=== PATIENT | female | born 1950 | race Caucasian/White ===

== ENCOUNTER 2024-03-28 11:22 | Emergency (ER) | payer OTHER, MEDICAID ==
[~2024-03-28] VITALS: Ht 152.4 cm; Wt 68.1 kg
[2024-03-28 12:40] VITALS: BP 152/78; PULSE 76; RESP 18; TEMP 97.5; O2SAT 100
[2024-03-28] MEDS ORDERED: METH-1182 PO (13:35)
[2024-03-28] MEDS ORDERED: ACET-1080 PO (13:35)
== END 2024-03-28 13:39 | disposition home or self-care (01) ==
LOC: ER 11:22
DX: S29.011A Strain of muscle and tendon of front wall of thorax, initial encounter (principal); E11.9 Type 2 diabetes mellitus without complications; I10 Essential (primary) hypertension; W18.09XA Striking against other object with subsequent fall, initial encounter; Y93.02 Activity, running; Y92.89 Other specified places as the place of occurrence of the external cause; Y99.8 Other external cause status
CPT/HCPCS: 71101

== ENCOUNTER 2024-06-08 14:41 | Emergency (ER) | payer OTHER, MEDICAID ==
[~2024-06-08] VITALS: Ht 160 cm; Wt 65.0 kg
[~2024-06-08 14:41] MED LIST: ACET-1080 PO; METH-1182 PO
[2024-06-08 15:42] LABS: Urine Bacteria FEW /hpf (None Seen); Urine Blood 1+ /uL (Negative); Urine Budding Yeast FEW /hpf (None Seen); Urine Clarity Ex.Turbid (Clear); Urine Color Colorless (Yellow); Urine Protein, UAD TRACE (Negative); Urine Urobilinogen Normal (Negative); Urine WBC 198 /hpf (0 - 5)
[2024-06-08 15:43] VITALS: BP 129/72; PULSE 81; RESP 20; TEMP 98.4; O2SAT 97
[2024-06-08] MEDS: HYDROcodone-ACET 5/325MG TAB PO ONE (16:00)
[2024-06-08] MEDS ORDERED: BACDST PO (16:22)
[2024-06-08] MEDS ORDERED: [UNRECOGNIZED DRUG - CODE] VA (16:22)
[2024-06-08] MEDS ORDERED: ACET500T58 PO (16:22)
[2024-06-08] MEDS ORDERED: IBUP-1454 PO (16:22)
[2024-06-08] MEDS: SULFAMETHOX W/TRIMETH(800/160MG) DS TAB PO ONE (16:51)
== END 2024-06-08 17:00 | disposition home or self-care (01) ==
LOC: ER 14:41
DX: N39.0 Urinary tract infection, site not specified (principal); B37.31 Acute candidiasis of vulva and vagina; I10 Essential (primary) hypertension; E11.9 Type 2 diabetes mellitus without complications; Z79.899 Other long term (current) drug therapy
CPT/HCPCS: 81001

== ENCOUNTER 2024-12-21 08:23 | Emergency (ER) | payer OTHER, MEDICAID ==
[~2024-12-21] VITALS: Ht 152.4 cm; Wt 66.6 kg
[~2024-12-21 08:23] MED LIST changes: +ACET500T58 PO; +BACDST PO; +IBUP-1454 PO; +[UNRECOGNIZED DRUG - CODE] VA
[2024-12-21 09:21] VITALS: BP 156/85; PULSE 75; RESP 17; TEMP 97.9; O2SAT 98
--- NOTE | 2024-12-21 09:37 | ED.PDOC ---
History of Present Illness(SKN HPI Comments A 74 YEAR OLD FEMALE PRESENTS TO THE ED WITH COMPLAINT OF VAGINAL RASH. PATIENT STATES SHE HAS BEEN EXPERIENCING A VAGINAL RASH FOR THE PAST 1 WEEK. PATIENT REPORTS HAS ALSO BEEN EXPERIENCING PAINFUL URINATION DUE TO HER VAGINAL RASH FOR THE PAST 1 WEEK. PATIENT NOTES SHE WENT TO AN URGENT CARE WHERE SHE WAS PRESCRIBED VISTARIL AND LOTRIMIN CREAM, BUT NOTES THERE HAS BEEN NO IMPROVEMENT IN HER SYMPTOMS. PATIENT DENIES HEMATURIA, VAGINAL DISCHARGE, FEVER, CHILLS, SHORTNESS OF BREATH, CHEST PAIN, ABDOMINAL PAIN, NAUSEA, VOMITING, HEADACHE, OR OTHER COMPLAINTS. NO OTHER SYMPTOMS OR MODIFYING FACTORS AT THIS TIME. PATIENT IS ALERT, ORIENTED X 4, AND HAS STEADY GAIT. Chief Complaint: Rash Time Seen by MD: 09:11 Primary Care Provider: juan alberto History of Present Illness: Nurses Notes, Medications, Allergies Allergies: Coded Allergies: NO KNOWN ALLERGIES (Unverified , 03/28/24) Home Meds Active Scripts Ibuprofen (Ibuprofen) 600 Mg Tab, 1 TAB PO Q6HP PRN, #20 TAB Prov:MIK BISHOP PAC 06/08/24 Acetaminophen (Acetaminophen) 500 Mg Tab, 500 MG PO Q4HP PRN, #20 TAB Prov:MIK BISHOP PAC 06/08/24 Miconazole Nitrate Vaginal (Monistat 3 Combination Pa 200 & 2 mg-% (9Gm)) 1 Kit Kit, 1 KIT VA DAILY for 3 Days, #1 KIT Prov:MIK BISHOP PAC 06/08/24 Sulfamethoxazole W/Trimethopri (Bactrim Ds Tablet) 1 Tab Tb, 1 TAB PO BID for 7 Days, #14 TAB Prov:MIK BISHOP PAC 06/08/24 Methocarbamol (Methocarbamol) 750 Mg Tab, 750 MG PO QHSP PRN, #20 TAB Prov:YESIKA PATRICK 03/28/24 Acetaminophen (Tylenol 8 Hour Arthritis) 650 Mg Tab, 650 MG PO TID, #30 TAB Prov:YESIKA PATRICK 03/28/24 Information Source: Patient Mode of Arrival: Ambulatory Severity: Moderate Timing: Days Duration: Since onset, Days Prehospital treatment: None Location: Other (VAGINAL LABIA) Mechanism: Spontaneous Onset Developed: Rash Occurence: Indoors Object: None Condition of Object: None Retained Foreign Body: No Wound Type: None Immunization Status of Animal: NA Tetanus: Unknown History of: Diabetes Associated Signs and Symptoms: Redness, Pain Past Medical History PAST MEDICAL HISTORY: DM, HTN Surgical History: Denies all surgeries SHEET METAL WORK FURNACE INSTALLER History: No Pertinent SHEET METAL WORK FURNACE INSTALLER History Family History Family History: Reviewed,noncontributory to illness Social History Smoker: Non-Smoker Alcohol: Denies ETOH Use Drugs: Denies Drug Use Lives In: Home Constitutional: denies: chills, diaphoresis, fatigue, fever, malaise, sweats, weakness, others EENTM: denies: blurred vision, double vision, ear bleeding, ear discharge, ear drainage, ear pain, ear ringing, eye pain, eye redness, hearing loss, mouth pain, mouth swelling, nasal discharge, nose bleeding, nose congestion, nose pain, photophobia, tearing, throat pain, throat swelling, voice changes, others Respiratory: denies: cough, hemoptysis, orthopnea, SOB at rest, shortness of breath, SOB with excertion, stridor, wheezing, others Cardiovascular: denies: chest pain, dizzy spells, diaphoresis, Dyspnea on exertion, edema, irregular heart beat, left arm pain, lightheadedness, palpitations, PND, syncope, others Gastrointestinal: denies: abdomen distended, abdominal pain, blood streaked bowels, constipated, diarrhea, dysphagia, difficulty swallowing, hematemesis, melena, nausea, poor appetite, poor fluid intake, rectal bleeding, rectal pain, vomiting, others Genitourinary: denies: abnormal vagina bleeding, burning, dyspareunia, dysuria, flank pain, frequency, hematuria, incontinence, pain, , vagina discharge, urgency, others Neurological: denies: dizziness, fainting, headache, left sided numbness, left sided weakness, numbness, paresthesia, pre-existing deficit, right sided numbness, right sided weakness, seizure, speech problems, tingling, tremors, weakness, others Musculoskeletal: denies: back pain, gout, joint pain, joint swelling, muscle pain, muscle stiffness, neck pain, others Integumetry: reports: lesions, rash (RASH OF VAGINAL LABIA); denies: bruises, change in color, change in hair/nails, dryness, laceration, lumps, wounds, others Allergic/Immunocompromised: denies: Difficulty Healing, Frequent Infections, Hives, Itching, others Hematologic/Lymphatic: denies: anemia, blood clots, easy bleeding, easy bruising, swollen glands, others Endocrine: denies: excessive hunger, excessive sweating, excessive thirst, excessive urination, flushing, intolerance to cold, intolerance to heat, unexplained weight gain, unexplained weight loss, others Psychiatric: denies: anxiety, bipolar disorder, depression, hopeless, panic disorder, schizophrenia, sleepless, suicidal, others All Other Systems: Reviewed and Negative Physical Exam General Appearance: No Apparent Distress, Normal HEENT: Normal ENT Inspection, PERRL/EOMI, Pharynx Normal, TMs Normal Neck: Full Range of Motion, Non-Tender, Normal, Normal Inspection Respiratory: Chest Non-Tender, Lungs Clear, No Accessory Muscle Use, No Respiratory Distress, Normal Breath Sounds Cardiovascular: No Edema, No JVD, No Murmur, No Gallop, Normal Peripheral Pulses, Regular Rate/Rhythm Breast Exam: Deferred Gastrointestinal: No Organomegaly, Non Tender, No Pulsatile Mass, Normal Bowel Sounds, Soft Genitalia: Other (ERYTHEMATOUS AND PATCHY SKIN RASH OF VAGINAL LABIA AND BILATERAL INNER THIGHS. ) Pelvic: Deferred Rectal: Deferred Extremities: No calf tenderness, Normal capillary refill, Normal inspection, Normal range of motion, Non-tender, No pedal edema Musculoskeletal : Apperance: Normal Neurologic: Alert, mainframe applications developer II-XII nml as Tested, No Motor Deficits, Normal Affect, Normal Mood, No Sensory Deficits Cerebellar Function: Normal Reflexes: Normal Skin: Dry, Rash (ERYTHEMATOUS SKIN RASH ON BILATERAL VAGINAL LABIA AND MILD INNER THIGHS. ), Warm Peripheral Pulses: 2+ carotid (R), 2+ carotid (L) Lymphatic: No Adenopathy Was a procedure done? Was a procedure done?: No Differential Diagnosis (INTG) Differential Diagnosis: N/A Differential Diagnosis: Atopic dermatitis, Contact Dermatitis, Intertrigo, Tinea, Urticaria Differential Diagnosis: N/A Abscess: N/A Differential Diagnosis: N/A X-Ray, Labs, Meds, VS Vital Signs Date Time Temp Pulse Resp B/P (MAP) Pulse Ox O2 Delivery O2 Flow Rate FiO2 12/21/24 09:21 75 17 98 12/21/24 09:21 97.9 75 17 156/85 (108) 98 97.9 12/21/24 08:33 97.9 75 17 156/85 (108) 98 Lab Test 12/21/24 09:17 12/21/24 08:30 Range/Units Urine Color Light-yellow Yellow Urine Clarity Clear Clear Urine pH 6.0 5.0-9.0 Urine Specific [place] 1.030 1.001-1.035 Urine Protein Negative Negative Urine Ketones Trace Negative Urine Blood Negative Negative /uL Urine Nitrite Negative Negative Urine Bilirubin Negative Negative Urine Urobilinogen Normal Negative mg/dL Urine Leukocyte Esterase 2+ Negative /uL Urine RBC 7 0 - 4 /hpf Urine Microscopic WBC 7 H 0-5 /HPF Urine Squamous Epithelial Cells Few <5 /hpf Urine Bacteria Few H None Seen /hpf Urine Glucose 4+ H Normal mg/dL POC Glucose 240 H 70-106 mg/dl Current Medications Medications (Trade) Dose Ordered Sig/Oliver Route Start Time Stop Time Status Last Admin Ceftriaxone Sodium (Rocephin) 1,000 mg ONCE ONCE IM 12/21/24 09:45 12/21/24 09:46 DC 12/21/24 09:49 X-Ray, Labs, Meds, VS Comment EXTERNAL MEDICAL RECORDS REVIEWED: [NONE] INDEPENDENT HISTORIANS: [NONE] SOCIAL DETERMINANTS OF HEALTH: [NONE] LABS ORDERED: UA REVIEWED AND INTERPRETED RESULTS: LEUKO 2+, UGLU 4+ IMAGING ORDERED: NONE TREATMENTS ORDERED: ROCEPHIN 1 G IM PROCEDURES PERFORMED: NONE CRITICAL CARE TIME: NONE I HAVE DISCUSSED THE PATIENT WITH THE ATTENDING PHYSICIAN DR. STERLING AND HE AGREES WITH THE PATIENT'S PLAN OF CARE AND DISPOSITION. BASED ON HISTORY OF PRESENT ILLNESS, AND PHYSICAL EXAM, PATIENT WILL BE DISCHARGED HOME. DISCUSSED PLAN FOR DISCHARGE HOME WITH RX [KEFLEX AND SEPTRA DS]. MEDICATION WARNINGS GIVEN. SHARED DECISION MAKING: PATIENT INSTRUCTED TO FOLLOW UP WITH PRIMARY CARE PROVIDER IN 1-2 DAYS FOR RE-EVALUATION OF SYMPTOMS. PATIENT VERBALIZES UNDERSTANDING TO RETURN TO ED FOR NEW OR WORSENING SYMPTOMS OR IF FOLLOW UP WITH PCP CANNOT BE OBTAINED. PATIENT FEELS COMFORTABLE GOING HOME AT THIS TIME. ALL QUESTIONS ADDRESSED AT TIME OF DISCHARGE. Time of 1ST Reevaluation: 10:10 Reevaluation 1ST: Improved Patient Education/Counseling: Diagnosis, Treatment, Need For Follow Up Family Education/Counseling: Diagnosis, Treatment, Need For Follow Up Medical Screening: No EMC Exist At This Time Departure 1 Departure Time of Disposition: 10:10 Impression: Primary Impression: Tinea cruris Additional Impressions: Suspected soft tissue infection Acute UTI (urinary tract infection) Disposition: HOME / SELF CARE / HOMELESS Condition: Stable Additional Instructions: FOLLOW-UP WITH PCP IN 1 TO 2 DAYS. TAKE MEDICATIONS PRESCRIBED. RETURN TO ED FOR ANY NEW OR WORSENING SYMPTOMS. e-Prescriptions Ketoconazole (Ketoconazole) 2 % Cre 1 APPLIC TOP BID, #60 GRAMS 1 Refill Prov: YESIKA PATRICK 12/21/24 Cephalexin Monohydrate (Cephalexin) 500 Mg Cap 1 CAP PO TID, #30 CAP Prov: YESIKA PATRICK 12/21/24 Sulfamethoxazole W/Trimethopri (Bactrim Ds Tablet) 1 Tab Tb 1 TAB PO BID for 7 Days, #14 TAB Prov: YESIKA PATRICK 12/21/24 Discharged With: Self Critical Care Note Critical Care Time?: No Stability Stability form required: No I personally scribed for YESIKA PATRICK ([email or web address]) on 12/21/24 at 09:37. Elect ronically submitted by Francesco Panda ([email or web address]). I personally scribed for YESIKA PATRICK ([email or web address]) on 12/21/24 at 09:45. Electr onically submitted by Francesco Panda ([email or web address]). YESIKA PATRICK Dec 21, 2024 09:37
[2024-12-21 09:38] LABS: Urine Bacteria FEW /hpf (None Seen); Urine Blood Negative /uL (Negative); Urine Clarity Clear (Clear); Urine Color Light-Yellow (Yellow); Urine Protein, UAD Negative (Negative); Urine Squamous Epithelial Cell FEW /hpf (<5); Urine Urobilinogen Normal (Negative); Urine WBC 7 /HPF (0-5)
[2024-12-21] MEDS: cefTRIAXone SOD 1,000 MG VL IM ONE (09:49)
[2024-12-21] MEDS ORDERED: KETO2CRE4 TOP (10:00)
[2024-12-21] MEDS ORDERED: CEPH500C PO (10:00)
[2024-12-21] MEDS ORDERED: BACDST PO (10:00)
== END 2024-12-21 10:11 | disposition home or self-care (01) ==
LOC: ER 08:23
DX: N39.0 Urinary tract infection, site not specified (principal); B35.6 Tinea cruris; E11.9 Type 2 diabetes mellitus without complications; I10 Essential (primary) hypertension; Z79.899 Other long term (current) drug therapy
CPT/HCPCS: 81001; 82962; 96372; 99283; J0696

== ENCOUNTER 2025-09-04 13:13 | Emergency (ER) | payer OTHER, MEDICAID ==
[~2025-09-04] VITALS: Ht 154.9 cm; Wt 67.1 kg
[~2025-09-04 13:13] MED LIST changes: +CEPH500C PO; +KETO2CRE4 TOP
--- NOTE | 2025-09-04 14:17 | DVH ---
CHEST RADIOGRAPH Indication: BODY ACHING AND CHILLS Technique: Single frontal view of the chest was obtained Comparison: None FINDINGS: Lines and Tubes: None Lungs: No focal consolidation. Pleura: No effusion. No pneumothorax. Cardiomediastinal contours: Unremarkable Bones: No acute osseous abnormality. IMPRESSION: 1. No acute cardiopulmonary disease.
[2025-09-04 14:37] LABS: Hematocrit 44.4 % (36.0-46.0); Hemoglobin 15.0 g/dL (12.2-16.2); Mean Corpuscular Hemoglobin 28.0 pg (28.0-32.0); Mean Corpuscular Volume 82.5 fL (80.0-100.0); Nucleated Red Blood Cells % 0.0 %
[2025-09-04 14:49] LABS: Chloride 99 mmol/L (98-107)
[2025-09-04 14:50] LABS: Anion Gap 12 (5-15); Calcium 9.5 mg/dL (8.7-10.4); Carbon Dioxide 22 mmol/L (20-31)
[2025-09-04 14:55] LABS: BUN/Creatinine Ratio 12.2 (10.0-20.0); Blood Urea Nitrogen 11 mg/dL (9-23)
[2025-09-04 15:02] LABS: Urine Budding Yeast OCCASIONAL /hpf (None Seen); Urine Protein, UAD 1+ (Negative)
[2025-09-04 15:07] LABS: Glucose 191 mg/dL (74-106); Potassium 3.1 mmol/L (3.5-5.1); Sodium 133 mmol/L (136-145)
[2025-09-04] MEDS: POTASSIUM CHL 20 Meq TABLET PO ONE (16:04)
[2025-09-04] MEDS: SODIUM CHLORIDE 0.9% 1,000 ML IV ONE (16:04)
[2025-09-04 16:57] VITALS: BP 142/69; PULSE 76; RESP 16; TEMP 99.1; O2SAT 97
--- NOTE | 2025-09-05 11:14 | ED.PDOC ---
History of Present Illness HPI Comments A 75 YEAR OLD FEMALE PRESENTS TO THE ED WITH COMPLAINT OF FLU-LIKE SYMPTOMS. PATIENT STATES SHE HAS BEEN EXPERIENCING BODY ACHES, CHILLS, AND AN OCCASIONAL FEVER FOR THE PAST 1 WEEK. PATIENT DENIES SHORTNESS OF BREATH, CHEST PAIN, ABDOMINAL PAIN, NAUSEA, VOMITING, HEADACHE, OR OTHER COMPLAINTS. NO OTHER SYMP TOMS OR MODIFYING FACTORS AT THIS TIME. PATIENT IS ALERT, ORIENTED X 4, AND HAS STEADY GAIT. Chief Complaint: Body Pain Time Seen by MD: 13:15 Primary Care Provider: juan alberto Reviewed Notes: Nurses Notes, Medications, Allergies Allergies: Coded Allergies: NO KNOWN ALLERGIES (Unverified , 03/28/24) Home Meds Active Scripts Ketoconazole (Ketoconazole) 2 % Cre, 1 APPLIC TOP BID, #60 GRAMS 1 Refill Prov:YESIKA PATRICK 12/21/24 Cephalexin Monohydrate (Cephalexin) 500 Mg Cap, 1 CAP PO TID, #30 CAP Prov:YESIKA PATRICK 12/21/24 Sulfamethoxazole W/Trimethopri (Bactrim Ds Tablet) 1 Tab Tb, 1 TAB PO BID for 7 Days, #14 TAB Prov:YESIKA PATRICK 12/21/24 Ibuprofen (Ibuprofen) 600 Mg Tab, 1 TAB PO Q6HP PRN, #20 TAB Prov:MIK BISHOP PAC 06/08/24 Acetaminophen (Acetaminophen) 500 Mg Tab, 500 MG PO Q4HP PRN, #20 TAB Prov:MIK BISHOP PAC 06/08/24 Miconazole Nitrate Vaginal (Monistat 3 Combination Pa 200 & 2 mg-% (9Gm)) 1 Kit Kit, 1 KIT VA DAILY for 3 Days, #1 KIT Prov:MIK BISHOP PAC 06/08/24 Sulfamethoxazole W/Trimethopri (Bactrim Ds Tablet) 1 Tab Tb, 1 TAB PO BID for 7 Days, #14 TAB Prov:MIK BISHOP PAC 06/08/24 Methocarbamol (Methocarbamol) 750 Mg Tab, 750 MG PO QHSP PRN, #20 TAB Prov:YESIKA PATRICK 03/28/24 Acetaminophen (Tylenol 8 Hour Arthritis) 650 Mg Tab, 650 MG PO TID, #30 TAB Prov:YESIKA PATRICK 03/28/24 Information Source: Patient Mode of Arrival: Ambulatory Severity: Moderate Timing: Days Duration: Since onset, Days Prehospital treatment: None Medication Refill: For: Other (FLU-LIKE SYMPTOMS) Past Medical History PAST MEDICAL HISTORY: DM, HTN Surgical History: Denies all surgeries SUPERVISOR ROSE GRADING History: No Pertinent SUPERVISOR ROSE GRADING History Family History Family History: Reviewed,noncontributory to illness Social History Smoker: Non-Smoker Alcohol: Denies ETOH Use Drugs: Denies Drug Use Lives In: Home Constitutional: reports: chills, fever; denies: diaphoresis, fatigue, malaise, sweats, weakness, others EENTM: denies: blurred vision, double vision, ear bleeding, ear discharge, ear drainage, ear pain, ear ringing, eye pain, eye redness, hearing loss, mouth pain, mouth swelling, nasal discharge, nose bleeding, nose congestion, nose pain, photophobia, tearing, throat pain, throat swelling, voice changes, others Respiratory: denies: cough, hemoptysis, orthopnea, SOB at rest, shortness of breath, SOB with excertion, stridor, wheezing, others Cardiovascular: denies: chest pain, dizzy spells, diaphoresis, Dyspnea on exertion, edema, irregular heart beat, left arm pain, lightheadedness, palpitations, PND, syncope, others Gastrointestinal: denies: abdomen distended, abdominal pain, blood streaked bowels, constipated, diarrhea, dysphagia, difficulty swallowing, hematemesis, melena, nausea, poor appetite, poor fluid intake, rectal bleeding, rectal pain, vomiting, others Genitourinary: denies: abnormal vagina bleeding, burning, dyspareunia, dysuria, flank pain, frequency, hematuria, incontinence, pain, , vagina discharge, urgency, others Neurological: denies: dizziness, fainting, headache, left sided numbness, left sided weakness, numbness, paresthesia, pre-existing deficit, right sided numbness, right sided weakness, seizure, speech problems, tingling, tremors, weakness, others Musculoskeletal: reports: muscle pain; denies: back pain, gout, joint pain, joint swelling, muscle stiffness, neck pain, others Integumetry: denies: bruises, change in color, change in hair/nails, dryness, laceration, lesions, lumps, rash, wounds, others Allergic/Immunocompromised: denies: Difficulty Healing, Frequent Infections, Hives, Itching, others Hematologic/Lymphatic: denies: anemia, blood clots, easy bleeding, easy bruising, swollen glands, others Endocrine: denies: excessive hunger, excessive sweating, excessive thirst, excessive urination, flushing, intolerance to cold, intolerance to heat, unexplained weight gain, unexplained weight loss, others Psychiatric: denies: anxiety, bipolar disorder, depression, hopeless, panic disorder, schizophrenia, sleepless, suicidal, others All Other Systems: Reviewed and Negative Physical Exam General Appearance: No Apparent Distress, Normal HEENT: Normal ENT Inspection, PERRL/EOMI, Pharynx Normal, TMs Normal Neck: Full Range of Motion, Non-Tender, Normal, Normal Inspection Respiratory: Chest Non-Tender, Lungs Clear, No Accessory Muscle Use, No Respiratory Distress, Normal Breath Sounds Cardiovascular: No Edema, No JVD, No Murmur, No Gallop, Normal Peripheral Pulses, Regular Rate/Rhythm Breast Exam: Deferred Gastrointestinal: No Organomegaly, Non Tender, No Pulsatile Mass, Normal Bowel Sounds, Soft Genitalia: Deferred Pelvic: Deferred Rectal: Deferred Extremities: No calf tenderness, Normal capillary refill, Normal inspection, N ormal range of motion, Non-tender, No pedal edema Musculoskeletal : Apperance: Normal Neurologic: Alert, developer analyst II-XII nml as Tested, No Motor Deficits, Normal Affect, Normal Mood, No Sensory Deficits Cerebellar Function: Normal Reflexes: Normal Skin: Dry, Normal Color, Warm Peripheral Pulses: 2+ carotid (R), 2+ carotid (L) Lymphatic: No Adenopathy Was a procedure done? Was a procedure done?: No Differential Dx Considerations may include: SYMPTOMS, VIRAL SYNDROME, DEHYDRATION, ELECTROLYTE IMBALANCE, UTI, ACUTE CYSTITIS, UNCONTROLLED DIABETES, DIABETES NONCOMPLIANT, DKA, TONSILLITIS, PHARYNGITIS, OTITIS MEDIA X-Ray, Labs, Meds, VS Vital Signs Date Time Temp Pulse Resp B/P (MAP) Pulse Ox O2 Delivery O2 Flow Rate FiO2 09/04/25 13:15 98.1 87 18 171/93 97 98.1 Lab Test 09/04/25 14:06 09/04/25 13:46 Range/Units White Blood Count 8.7 4.4-10.8 10^3/uL Red Blood Count 5.38 H 4.0-5.20 10^6/uL Hemoglobin 15.0 12.2-16.2 g/dL Hematocrit 44.4 36.0-46.0 % Mean Corpuscular Volume 82.5 80.0-100.0 fL Mean Corpuscular Hemoglobin 28.0 28.0-32.0 pg Mean Corpuscular Hemoglobin Concent 33.9 32.0-36.0 g/dL Red Cell Distribution Width 13.4 11.8-14.3 % Platelet Count 256 140-450 10^3/uL Mean Platelet Volume 8.0 6.9-10.8 fL Neutrophils (%) (Auto) 82.6 H 37.0-80.0 % Lymphocytes (%) (Auto) 7.6 L 10.0-50.0 % Monocytes (%) (Auto) 9.1 0.0-12.0 % Eosinophils (%) (Auto) 0.1 0.0-7.0 % Basophils (%) (Auto) 0.6 0.0-2.0 % Neutrophils # (Auto) 7.2 1.6-8.6 10 ^3/uL Lymphocytes # (Auto) 0.7 0.4-5.4 10 ^3/uL Monocytes # (Auto) 0.8 0-1.3 10 ^3/uL Eosinophils # (Auto) 0 0-0.8 10 ^3/uL Basophils # (Auto) 0.1 0-0.2 10 ^3/uL Nucleated Red Blood Cells 0.0 % Sodium Level 133 L 136-145 mmol/L Potassium Level 3.1 L 3.5-5.1 mmol/L Chloride Level 99 98-107 mmol/L Carbon Dioxide Level 22 20-31 mmol/L Anion Gap 12 5-15 Blood Urea Nitrogen 11 9-23 mg/dL Creatinine 0.90 0.550-1.02 mg/dL Glomerular Filtration Rate Calc 68 >90 mL/min BUN/Creatinine Ratio 12.2 10.0-20.0 Serum Glucose 191 H 74-106 mg/dL Calcium Level 9.5 8.7-10.4 mg/dL Beta-Hydroxybutyric Acid 1.088 H < 0.4 mmol/L Thyroid Stimulating Hormone (TSH) 0.49 L 0.55-4.78 uIU/mL Urine Color Light-yellow Yellow Urine Clarity Clear Clear Urine pH 6.0 5.0-9.0 Urine Specific [place] 1.017 1.001-1.035 Urine Protein 1+ H Negative Urine Ketones 1+ H Negative Urine Blood 1+ H Negative /uL Urine Nitrite Negative Negative Urine Bilirubin Negative Negative Urine Urobilinogen Normal Negative mg/dL Urine Leukocyte Esterase 1+ Negative /uL Urine RBC 7 0 - 4 /hpf Urine Microscopic WBC 18 H 0-5 /HPF Urine Squamous Epithelial Cells Few <5 /hpf Urine Bacteria Few H None Seen /hpf Urine Yeast (Budding) Occasional None Seen /hpf Urine Glucose 4+ H Normal mg/dL Current Medications Medications (Trade) Dose Ordered Sig/Oliver Route Start Time Stop Time Status Last Admin Sodium Chloride 1,000 ml @ 1,000 mls/hr Q1H ONCE IV 09/04/25 15:30 09/04/25 16:29 DC 09/04/25 16:04 Potassium Chloride (Klor-Con Tablet) 40 meq ONCE ONCE PO 09/04/25 15:45 09/04/25 15:46 DC 09/04/25 16:04 CHEST RADIOGRAPH Indication: BODY ACHING AND CHILLS Technique: Single frontal view of the chest was obtained Comparison: None FINDINGS: Lines and Tubes: None Lungs: No focal consolidation. Pleura: No effusion. No pneumothorax. Cardiomediastinal contours: Unremarkable Bones: No acute osseous abnormality. IMPRESSION: 1. No acute cardiopulmonary disease. ATED BY: JADE POWER Jr., DO DICTATED DATE/TIME: 09/04/251413 SIGNED BY: JADE POWER Jr., SIGNED DATE/TIME: 09/04/251413 CC: X-Ray, Labs, Meds, VS Comment EXTERNAL MEDICAL RECORDS REVIEWED: [NONE] INDEPENDENT HISTORIANS: [NONE] SOCIAL DETERMINANTS OF HEALTH: [NONE] LABS ORDERED: CBC, BMP, BHB, UA REVIEWED AND INTERPRETED RESULTS: LEUKOCYTES 1+, URINE GLUCOSE 4+, K 3.1, NA133, GLUCOSE 191, TSH 0.49 IMAGING ORDERED: XR CHEST TREATMENTS ORDERED: NS 1 L IV, ROCEPHIN 1 G IV, POTASSIUM 40 MEQ P.O. PROCEDURES PERFORMED: NONE CRITICAL CARE TIME: NONE I HAVE DISCUSSED THE PATIENT WITH THE ATTENDING PHYSICIAN DR. COLON AND HE AGREES WITH THE PATIENT'S PLAN OF CARE AND DISPOSITION. BASED ON HISTORY OF PRESENT ILLNESS, AND PHYSICAL EXAM, PATIENT WILL BE DISCHARGED HOME. SHARED DECISION MAKING: DISCUSSED WITH PATIENT THAT THEIR WORKUP WAS NORMAL. PATIENT INSTRUCTED TO FOLLOW UP WITH PRIMARY CARE PROVIDER IN 1-2 DAYS FOR RE- EVALUATION OF SYMPTOMS. PATIENT VERBALIZES UNDERSTANDING TO RETURN TO ED FOR NEW OR WORSENING SYMPTOMS OR IF FOLLOW UP WITH PCP CANNOT BE OBTAINED. PATIENT FEELS COMFORTABLE GOING HOME AT THIS TIME. ALL QUESTIONS ADDRESSED AT TIME OF DISCHARGE. Time of 1ST Reevaluation: 16:44 Reevaluation 1ST: Improved Patient Education/Counseling: Diagnosis, Treatment, Need For Follow Up Family Education/Counseling: Diagnosis, Treatment, Need For Follow Up Medical Screening: No EMC Exist At This Time SEPSIS Sepsis Screen Date sepsis recognized/suspect: Sep 04, 2025 Time Sepsis recognized/suspect: 1315 Recent Procedure: No On Antibiotic Therapy: No Respiratory Rate >20: No Heart Rate >90: No Temp<36 C (96.8 F) or >38.3 C: No SBP <90 or MAP <65 mmHG: No New Acute Mental Status Change: No Is the patient on CPAP, BIPAP,: No Physician Orders Chest Xray 1 View (09/04/25 13:50) Heplock Iv (09/04/25 ) Vital Signs Date Time Temp Pulse Resp B/P (MAP) Pulse Ox O2 Delivery O2 Flow Rate FiO2 09/04/25 13:15 98.1 87 18 171/93 97 98.1 Laboratory Tests Test 09/04/25 14:06 White Blood Count 8.7 10^3/uL (4.4-10.8) Medications Medications Dose Ordered Sig/Oliver Route Start Time Stop Time Status Last Admin Dose Admin Potassium Chloride 40 meq ONCE ONCE PO 09/04/25 15:45 09/04/25 15:46 DC 09/04/25 16:04 Sodium Chloride 1,000 ml @ 1,000 mls/hr Q1H ONCE IV 09/04/25 15:30 09/04/25 16:29 DC 09/04/25 16:04 Departure 1 Departure Time of Disposition: 17:00 Impression: Primary Impression: Acute UTI (urinary tract infection) Additional Impressions: Hypokalemia Hyperthyroidism Disposition: HOME / SELF CARE / HOMELESS Condition: Stable Additional Instructions: FOLLOW-UP WITH PCP IN 1 TO 2 DAYS. TAKE MEDICATIONS PRESCRIBED. RETURN TO ED FOR ANY NEW OR WORSENING SYMPTOMS. Discharged With: Self, Relative Critical Care Note Critical Care Time?: No Stability Stability form required: No I personally scribed for YESIKA PATRICK ([email or web address]) on 09/04/25 at 13:51. Electronically submitted by Francesco Panda ([email or web address]). I personally scribed for YESIKA PATRICK ([email or web address]) on 09/04/25 at 16:20. Electronically submitted by Francesco Panda ([email or web address]). YESIKA PATRICK Sep 04, 2025 13:51
== END 2025-09-04 17:02 | disposition home or self-care (01) ==
LOC: ER 13:13
DX: N39.0 Urinary tract infection, site not specified (principal); E87.6 Hypokalemia; E05.90 Thyrotoxicosis, unspecified without thyrotoxic crisis or storm; I10 Essential (primary) hypertension; E11.9 Type 2 diabetes mellitus without complications; Z79.899 Other long term (current) drug therapy
CPT/HCPCS: 36415; 71045; 80048; 81001; 82010; 84443; 85025; 96361; 96365; 99284; J0696; J7030; 96360

== ENCOUNTER 2025-10-24 08:11 | Emergency (ER) | payer OTHER, MEDICAID ==
[~2025-10-24] VITALS: Ht 152.4 cm; Wt 69.4 kg
--- NOTE | 2025-10-24 08:51 | ED.PDOC ---
General HPI Comments A 75 YEAR OLD FEMALE PRESENTS TO THE ED WITH COMPLAINT OF UTI SYMPTOMS ONSET 3 DAYS AGO. PATIENT REPORTS INCREASED FREQUENCY OF URINATION AND BURNING IN HER VAGINAL REGION FOR THE PAST 3 DAYS. PATIENT NOTES SHE HAS A HISTORY OF UTIS IN THE PAST. PATIENT DENIES HEMATURIA, FLANK PAIN, FEVER, CHILLS, SHORTNESS OF BREATH, CHEST PAIN, ABDOMINAL PAIN, NAUSEA, VOMITING, HEADACHE, OR OTHER COMPLAINTS. NO OTHER SYMPTOMS OR MODIFYING FACTORS AT THIS TIME. PATIENT IS ALERT, ORIENTED X 4, AND HAS STEADY GAIT. Chief Complaint: Urinary Time Seen by MD: 08:55 Primary Care Provider: juan alberto Reviewed notes: Nurses Notes, Medications, Allergies Allergies: Coded Allergies: NO KNOWN ALLERGIES (Unverified , 03/28/24) Home Meds Active Scripts Ketoconazole (Ketoconazole) 2 % Cre, 1 APPLIC TOP BID, #60 GRAMS 1 Refill Prov:YESIKA PATRICK PA 12/21/24 Cephalexin Monohydrate (Cephalexin) 500 Mg Cap, 1 CAP PO TID, #30 CAP Prov:YESIKA PATRICK PA 12/21/24 Sulfamethoxazole W/Trimethopri (Bactrim Ds Tablet) 1 Tab Tb, 1 TAB PO BID for 7 Days, #14 TAB Prov:YESIKA PATRICK PA 12/21/24 Ibuprofen (Ibuprofen) 600 Mg Tab, 1 TAB PO Q6HP PRN, #20 TAB Prov:MIK BISHOP PAC 06/08/24 Acetaminophen (Acetaminophen) 500 Mg Tab, 500 MG PO Q4HP PRN, #20 TAB Prov:MIK BISHOP PAC 06/08/24 Miconazole Nitrate Vaginal (Monistat 3 Combination Pa 200 & 2 mg-% (9Gm)) 1 Kit Kit, 1 KIT VA DAILY for 3 Days, #1 KIT Prov:MIK BISHOP PAC 06/08/24 Sulfamethoxazole W/Trimethopri (Bactrim Ds Tablet) 1 Tab Tb, 1 TAB PO BID for 7 Days, #14 TAB Prov:MIK BISHOP PAC 06/08/24 Methocarbamol (Methocarbamol) 750 Mg Tab, 750 MG PO QHSP PRN, #20 TAB Prov:YESIKA PATRICK PA 03/28/24 Acetaminophen (Tylenol 8 Hour Arthritis) 650 Mg Tab, 650 MG PO TID, #30 TAB Prov:YESIKA PATRICK 03/28/24 Information Source: Patient Mode of Arrival: Ambulatory Severity: Moderate Inability to void: None Timing: Days Duration: Since onset, Days Prehospital treatment: None Onset: Spontaneous Symptoms: Frequency, Other (BURNING SENSATION ) History of: UTI Location: None Modifying factors: None associated signs and symptoms: Dysuria, Frequency, Urgency, Other (BURNING SENSATION) Past Medical History PAST MEDICAL HISTORY: DM, HTN, UTI'S Surgical History: Denies all surgeries 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 Pertinent CHUCKING MACHINE SET UP OPERATOR TOOL History Family History Family History: Reviewed,noncontributory to illness Social History Smoker: Non-Smoker Alcohol: Denies ETOH Use Drugs: Denies Drug Use Lives In: Home Constitutional: denies: chills, diaphoresis, fatigue, fever, malaise, sweats, weakness, others EENTM: denies: blurred vision, double vision, ear bleeding, ear discharge, ear drainage, ear pain, ear ringing, eye pain, eye redness, hearing loss, mouth pain, mouth swelling, nasal discharge, nose bleeding, nose congestion, nose pain, photophobia, tearing, throat pain, throat swelling, voice changes, others Respiratory: denies: cough, hemoptysis, orthopnea, SOB at rest, shortness of breath, SOB with excertion, stridor, wheezing, others Cardiovascular: denies: chest pain, dizzy spells, diaphoresis, Dyspnea on exertion, edema, irregular heart beat, left arm pain, lightheadedness, palpitations, PND, syncope, others Gastrointestinal: denies: abdomen distended, abdominal pain, blood streaked bowels, constipated, diarrhea, dysphagia, difficulty swallowing, hematemesis, melena, nausea, poor appetite, poor fluid intake, rectal bleeding, rectal pain, vomiting, others Genitourinary: reports: burning, frequency, pain (VAGINAL BURNING SENSATION), urgency; denies: abnormal vagina bleeding, dyspareunia, dysuria, flank pain, hematuria, incontinence, , vagina discharge, others Neurological: denies: dizziness, fainting, headache, left sided numbness, left sided weakness, numbness, paresthesia, pre-existing deficit, right sided numbness, right sided weakness, seizure, speech problems, tingling, tremors, weakness, others Musculoskeletal: denies: back pain, gout, joint pain, joint swelling, muscle pain, muscle stiffness, neck pain, others Integumetry: denies: bruises, change in color, change in hair/nails, dryness, laceration, lesions, lumps, rash, wounds, others Allergic/Immunocompromised: denies: Difficulty Healing, Frequent Infections, Hives, Itching, others Hematologic/Lymphatic: denies: anemia, blood clots, easy bleeding, easy bruising, swollen glands, others Endocrine: denies: excessive hunger, excessive sweating, excessive thirst, excessive urination, flushing, intolerance to cold, intolerance to heat, unexplained weight gain, unexplained weight loss, others Psychiatric: denies: anxiety, bipolar disorder, depression, hopeless, panic disorder, schizophrenia, sleepless, suicidal, others All Other Systems: Reviewed and Negative Physical Exam General Appearance: No Apparent Distress, Normal HEENT: Normal ENT Inspection, PERRL/EOMI, Pharynx Normal, TMs Normal Neck: Full Range of Motion, Non-Tender, Normal, Normal Inspection Respiratory: Chest Non-Tender, Lungs Clear, No Accessory Muscle Use, No Respiratory Distress, Normal Breath Sounds Cardiovascular: No Edema, No JVD, No Murmur, No Gallop, Normal Peripheral Pulses, Regular Rate/Rhythm Breast Exam: Deferred Gastrointestinal: No Organomegaly, Non Tender, No Pulsatile Mass, Normal Bowel Sounds, Soft Genitalia: Deferred Pelvic: Deferred Rectal: Deferred Extremities: No calf tenderness, Normal capillary refill, Normal inspection, Normal range of motion, Non-tender, No pedal edema Musculoskeletal : Apperance: Normal Neurologic: Alert, enterprise application analyst II-XII nml as Tested, No Motor Deficits, Normal Affect, Normal Mood, No Sensory Deficits Cerebellar Function: Normal Reflexes: Normal Skin: Dry, Normal Color, Warm Peripheral Pulses: 2+ carotid (R), 2+ carotid (L) Lymphatic: No Adenopathy Was a procedure done? Was a procedure done?: No Differential Diagnosis Kidney stone (Female): N/A Kidney stone (Male): N/A Penile/Scrotal: N/A Urinary Problem (Male): N/A Urinary Problem (Female): Pyelonephritis, Urolithiasis, UTI, Vaginitis X-Ray, Labs, Meds, VS Vital Signs Date Time Temp Pulse Resp B/P (MAP) Pulse Ox O2 Delivery O2 Flow Rate FiO2 10/24/25 08:52 98.2 65 16 177/76 (109) 98 98.2 10/24/25 08:52 65 16 98 Room Air 10/24/25 08:12 98.2 65 16 177/76 98 98.2 Lab Test 10/24/25 09:51 10/24/25 08:53 Range/Units POC Glucose 198 H 70-106 mg/dl Urine Color Light-yellow Yellow Urine Clarity Clear Clear Urine pH 6.0 5.0-9.0 Urine Specific Bliss 1.024 1.001-1.035 Urine Protein Negative Negative Urine Ketones Negative Negative Urine Blood Negative Negative /uL Urine Nitrite 2+ H Negative Urine Bilirubin Negative Negative Urine Urobilinogen Normal Negative mg/dL Urine Leukocyte Esterase 2+ Negative /uL Urine RBC 14 0 - 4 /hpf Urine Microscopic WBC 30 H 0-5 /HPF Urine Squamous Epithelial Cells Few <5 /hpf Urine Bacteria Few H None Seen /hpf Urine Yeast (Budding) Occasional None Seen /hpf Urine Glucose 4+ H Normal mg/dL Current Medications Medications (Trade) Dose Ordered Sig/Oliver Route Start Time Stop Time Status Last Admin Ceftriaxone Sodium (Rocephin) 1,000 mg ONCE ONCE IM 10/24/25 10:00 10/24/25 10:14 DC 10/24/25 10:04 Phenazopyridine HCl (Pyridium Tablet) 200 mg ONCE ONCE PO 10/24/25 10:00 10/24/25 10:14 DC 10/24/25 10:04 X-Ray, Labs, Meds, VS Comment COURSE: EXTERNAL MEDICAL RECORDS REVIEWED: [NONE] INDEPENDENT HISTORIANS: [NONE] SOCIAL DETERMINANTS OF HEALTH: [NONE] LABS ORDERED: URINALYSIS REVIEWED AND INTERPRETED RESULTS: NITRITE 2+, LEUKO 2+, UGLU 4+ IMAGING ORDERED: NONE TREATMENTS ORDERED: ROCEPHIN 1G IM AND PYRIDIUM 200MG PO PROCEDURES PERFORMED: NONE CRITICAL CARE TIME: NONE I HAVE DISCUSSED THE PATIENT WITH THE ATTENDING PHYSICIAN DR. COLON AND HE AGREES WITH THE PATIENT'S PLAN OF CARE AND DISPOSITION. BASED ON HISTORY OF PRESENT ILLNESS, AND PHYSICAL EXAM, PATIENT WILL BE DISCHARGED HOME. DISCUSSED PLAN FOR DISCHARGE HOME WITH RX [SEPTRA DS AND PYRIDIUM]. MEDICATION WARNINGS GIVEN. SHARED DECISION MAKING: DISCUSSED WITH PATIENT THAT THEIR WORKUP WAS NORMAL. PATIENT INSTRUCTED TO FOLLOW UP WITH PRIMARY CARE PROVIDER IN 1-2 DAYS FOR RE- EVALUATION OF SYMPTOMS. PATIENT VERBALIZES UNDERSTANDING TO RETURN TO ED FOR NEW OR WORSENING SYMPTOMS OR IF FOLLOW UP WITH PCP CANNOT BE OBTAINED. PATIENT FEELS COMFORTABLE GOING HOME AT THIS TIME. ALL QUESTIONS ADDRESSED AT TIME OF DISCHARGE. Time of 1ST Reevaluation: 10:18 Reevaluation 1ST: Improved Patient Education/Counseling: Diagnosis, Treatment, Need For Follow Up Family Education/Counseling: Diagnosis, Treatment, Need For Follow Up, No Family Present Medical Screening: No EMC Exist At This Time SEPSIS Sepsis Screen Date sepsis recognized/suspect: Oct 24, 2025 Time Sepsis recognized/suspect: 813 Recent Procedure: No On Antibiotic Therapy: No Respiratory Rate >20: No Heart Rate >90: No Temp<36 C (96.8 F) or >38.3 C: No SBP <90 or MAP <65 mmHG: No New Acute Mental Status Change: No Is the patient on CPAP, BIPAP,: No Vital Signs Date Time Temp Pulse Resp B/P (MAP) Pulse Ox O2 Delivery O2 Flow Rate FiO2 10/24/25 08:52 98.2 65 16 177/76 (109) 98 98.2 10/24/25 08:52 65 16 98 Room Air 10/24/25 08:12 98.2 65 16 177/76 98 98.2 Medications Medications Dose Ordered Sig/Oliver Route Start Time Stop Time Status Last Admin Dose Admin Ceftriaxone Sodium 1,000 mg ONCE ONCE IM 10/24/25 10:00 10/24/25 10:14 DC 10/24/25 10:04 Phenazopyridine HCl 200 mg ONCE ONCE PO 10/24/25 10:00 10/24/25 10:14 DC 10/24/25 10:04 Departure 1 Departure Time of Disposition: 10:18 Impression: Primary Impression: Acute UTI (urinary tract infection) Disposition: 01 HOME / SELF CARE / HOMELESS Condition: Stable Additional Instructions: FOLLOW UP WITH PCP IN 1-2 DAYS. TAKE MEDICATIONS PRESCRIBED. RETURN TO ED FOR ANY NEW OR WORSENING SYMPTOMS. e-Prescriptions Phenazopyridine HCl (Phenazopyridine Hydrochlo) 200 Mg Tab 200 MG PO TID, #6 TAB Prov: YESIKA PATRICK 10/24/25 Sulfamethoxazole W/Trimethopri (Bactrim Ds Tablet) 1 Tab Tb 1 TAB PO BID for 7 Days, #14 TAB Prov: YESIKA PATRICK 10/24/25 Discharged With: Self Critical Care Note Critical Care Time?: No Stability Stability form required: No Heart Score Heart Score: Heart Score Response (Comments) Value History N/A 0 EKG N/A 0 Age N/A 0 Risk Factors N/A 0 Troponin N/A 0 Total 0 I personally scribed for YESIKA PATRICK ([email or web address]) on 10/24/25 at 08:51. Electronically submitted by Maggie Poon ([employer]). I personally scribed for YESIKA PATRICK ([email or web address]) on 10/24/25 at 08:58. Electronically submitted by Maggie Poon ([employer]). I personally scribed for YESIKA PATRICK ([email or web address]) on 10/24/25 at 09:27. Electronically submitted by Francesco Panda ([email or web address]). I personally scribed for YESIKA PATRICK ([email or web address]) on 10/24/25 at 10:00. Electronically submitted by Francesco Panda ([email or web address]). YESIKA PATRICK Oct 24, 2025 08:51
[2025-10-24 08:52] VITALS: BP 177/76; PULSE 65; RESP 16; TEMP 98.2; O2SAT 98
[2025-10-24 09:35] LABS: Urine Budding Yeast OCCASIONAL /hpf (None Seen); Urine Protein, UAD Negative (Negative)
[2025-10-24] MEDS: PHENAZOPYRIDINE HCL 100 MG TAB PO ONE (10:04)
[2025-10-24] MEDS: cefTRIAXone SOD 1,000 MG VL IM ONE (10:04)
[2025-10-24] MEDS ORDERED: PHEN-922 PO (10:19)
== END 2025-10-24 10:24 | disposition home or self-care (01) ==
LOC: ER 08:11
DX: N39.0 Urinary tract infection, site not specified (principal); I10 Essential (primary) hypertension; E11.9 Type 2 diabetes mellitus without complications; Z79.899 Other long term (current) drug therapy; Z87.440 Personal history of urinary (tract) infections
CPT/HCPCS: 81001; 82947; 96372; 99283; J0696; 82962